=== PATIENT | female | born 1980 | race Caucasian/White ===

== ENCOUNTER 2017-02-27 07:50 | Emergency (ER) | payer MEDICARE ==
[~2017-02-27] VITALS: Ht 167.6 cm; Wt 74.8 kg
[2017-02-27 07:55] VITALS: BP 117/75
--- NOTE | 2017-02-27 08:17 | ED.ADGEN ---
Adult General Chief Complaint Chief Complaint: FOREIGN BODY VAGINA HPI HPI Patient is a 36 year old female who presents with retained tampon times several hours. Patient's currently on her menstrual period. Denies pain or cramping. Review of Systems Review of Systems Review symptoms as per history of present illness. Physical Exam Physical Exam Constitutional: Well developed, well nourished, no acute distress, non-toxic appearance. [] HENT: Normocephalic, atraumatic, bilateral external ears normal, oropharynx moist, no oral exudates, nose normal. [] Eyes: PERRLA, EOMI, conjunctiva normal, no discharge. [] Neck: Normal range of motion, no tenderness, supple, no stridor. [] Cardiovascular:Heart rate regular rhythm, no murmur [] Lungs & Thorax: Bilateral breath sounds clear to auscultation [] Abdomen: Bowel sounds normal, soft, no tenderness, no masses, no pulsatile masses. [] : Warm, dry, no erythema, no rash. [] Back: Retained tampon in the vaginal vault with dark menstrual blood. No additional foreign bodies upon recheck after removal. Extremities: No tenderness, no cyanosis, no clubbing, ROM intact, no edema. [] Neurologic: Alert and oriented X 3, normal motor function, normal sensory function, no focal deficits noted. [] Psychologic: Affect normal, judgement normal, mood normal. [] EKG EKG [] Radiology/Procedures Radiology/Procedures [] Course & Med Decision Making Course & Med Decision Making Pertinent Labs and Imaging studies reviewed. (See chart for details) [Intact tampon successfully removed. Patient assures this provider that the tampon was only retained for several hours and antibiotics are not currently indicated] Dragon Disclaimer Dragon Disclaimer This electronic medical record was generated, in whole or in part, using a voice recognition dictation system. ALISA DOS SANTOS DO Feb 27, 2017 08:17
== END 2017-02-27 08:30 | disposition home or self-care (01) ==
LOC: ER 07:50
DX: T19.2XXA Foreign body in vulva and vagina, initial encounter (principal); X58.XXXA Exposure to other specified factors, initial encounter; Y93.9 Activity, unspecified; Y92.89 Other specified places as the place of occurrence of the external cause; Y99.8 Other external cause status
CPT/HCPCS: 99284

== ENCOUNTER 2017-07-29 12:55 | Emergency (ER) | payer MEDICARE ==
[~2017-07-29] VITALS: Ht 167.6 cm; Wt 59.0 kg
[2017-07-29 13:03] VITALS: BP 117/65
[2017-07-29] MEDS ORDERED: ACET-704 PO (13:26)
[2017-07-29] MEDS ORDERED: AMOX500C PO (13:26)
--- NOTE | 2017-07-29 13:26 | PHYS DOC ---
Past Medical History Past Medical History: Bipolar, Other Additional Past Medical Histor: PTSD Past Surgical History: Cholecystectomy, Alcohol Use: None Drug Use: None Adult General Chief Complaint Chief Complaint: DENTAL PROBLEM HPI HPI Patient is a 36 year old female presents to the emergency department stating that she's been having right lower dental pain and discomfort for the last 2-3 days. She denies any fever, chills or any nausea or vomiting. Patient does have swelling noted on the right side of her lower jaw. States that she does not have a dentist to follow-up with. She denies any foul taste in the mouth. Review of Systems Review of Systems Constitutional: Denies fever or chills [] Eyes: Denies change in visual acuity, redness, or eye pain [] HENT: Denies nasal congestion or sore throat. C/O dental pain Respiratory: Denies cough or shortness of breath [] Cardiovascular: No additional information not addressed in HPI [] GI: Denies abdominal pain, nausea, vomiting, bloody stools or diarrhea [] : Denies dysuria or hematuria [] Musculoskeletal: Denies back pain or joint pain [] Integument: Denies rash or skin lesions [] Neurologic: Denies headache, focal weakness or sensory changes [] Endocrine: Denies polyuria or polydipsia [] All other systems were reviewed and found to be within normal limits, except as documented in this note. Allergies Allergies Allergies Coded Allergies Type Severity Reaction Last Updated Verified Sulfa (Sulfonamide Antibiotics) Allergy Intermediate N/V AND SWELLING 02/27/17 Yes morphine Allergy Intermediate HIVES, N/V 02/27/17 Yes Physical Exam Physical Exam Constitutional: Well developed, well nourished, no acute distress, non-toxic appearance. [] HENT: Normocephalic, atraumatic, bilateral external ears normal, oropharynx moist, no oral exudates, nose normal. Bilateral tympanic membranes appear to be normal. Patient appears to have multiple decayed teeth. Patient also has multiple missing teeth. Patient also has swelling noted to the right lower jawline. Patient was noted to have an abscess around the #27 tooth. No drainage or discharge noted from the area. Eyes: PERRLA, EOMI, conjunctiva normal, no discharge. [] Neck: Normal range of motion, no tenderness, supple, no stridor. [] Cardiovascular:Heart rate regular rhythm, no murmur [] Lungs & Thorax: Bilateral breath sounds clear to auscultation [] Skin: Warm, dry, no erythema, no rash. [] Extremities: No tenderness, no cyanosis, no clubbing, ROM intact, no edema. [] Neurologic: Alert and oriented X 3, normal motor function, normal sensory function, no focal deficits noted. [] Psychologic: Affect normal, judgement normal, mood normal. [] Current Patient Data Vital Signs Vital Signs Date Time Temp Pulse Resp B/P (MAP) Pulse Ox O2 Delivery O2 Flow Rate FiO2 07/29/17 13:03 97.5 98 18 99 Room Air 97.5 EKG EKG [] Radiology/Procedures Radiology/Procedures [] Course & Med Decision Making Course & Med Decision Making Pertinent Labs and Imaging studies reviewed. (See chart for details) Patient will be discharged home with a prescription for amoxicillin and Tylenol 3. She follow up with a dentist within the week. She'll be provided with a dentist list that she states she does not have a dentist. She was also recommended to use warm salt water mouth rinses 4 times a day continue to Amanda brush her teeth as normal. Instructed that Tylenol 3 will cause drowsiness do not take any be alert and oriented. Also recommended she drink plenty of fluids to prevent constipation. I've spoken with the patient and/or caregivers. I've explained the patient's condition, diagnosis and treatment plan based on information available to me at this time. I've answered the patient's and/or caregivers questions and addressed any concerns. The patient and/or caregivers have a good understanding the patient's diagnosis, condition and treatment plan as can be expected at this point. Vital signs have been stabilized. The patient's condition is stable for discharge from the emergency department. The patient will pursue further outpatient evaluation with her primary care provider or other designated consulting physician as outlined in the discharge instructions. Patient and/or caregivers are agreeable to this plan of care and follow-up instructions have been explained in detail. The patient and/or caregivers have received these instructions in written format and expressed understanding of these discharge instructions. The patient and her caregivers are aware that if any significant change in condition or worsening of symptoms should prompt him to immediately return to this of the closest emergency department. If an emergent department is not readily available I would encourage him to call 911. [] [place] Disclaimer Dragon Disclaimer This electronic medical record was generated, in whole or in part, using a voice recognition dictation system. Departure Departure Impression: Primary Impression: Dental abscess Disposition: HOME, SELF-CARE Condition: STABLE Referrals: NO PCP (PCP) Patient Instructions: Dental Abscess Additional Instructions: Activity as tolerated Medication as prescribed Tylenol #3 will cause drowsiness do not take if you need to be alert and oriented. This medication may also cause drowsiness drink plenty of fluids and high fiber diet Followup with dentist within the week] Return to emergency department as needed for signs and symptoms that become worse. Scripts Acetaminophen With Codeine (TYLENOL WITH CODEINE #3 TABLET) 1 Each Tablet 1 TAB PO PRN Q6HRS Y for PAIN, #15 TAB Prov: SATHISH TOSCANO APRN 07/29/17 Amoxicillin (AMOXICILLIN) 500 Mg Capsule 1 CAP PO QID, #40 CAP Prov: SATHISH TOSCANO APRN 07/29/17 SATHISH TOSCANO APRN Jul 29, 2017 13:26
== END 2017-07-29 13:39 | disposition home or self-care (01) ==
LOC: ER 12:55
DX: K04.7 Periapical abscess without sinus (principal); F43.10 Post-traumatic stress disorder, unspecified; F31.9 Bipolar disorder, unspecified; Z90.49 Acquired absence of other specified parts of digestive tract; Z88.2 Allergy status to sulfonamides; Z88.5 Allergy status to narcotic agent
CPT/HCPCS: 99283

== ENCOUNTER 2019-02-04 18:09 | Emergency (ER) | payer MEDICARE, SELFPAY ==
[~2019-02-04] VITALS: Ht 167.6 cm; Wt 77.1 kg
[~2019-02-04 18:09] MED LIST: ACET-704 PO; AMOX500C PO
[2019-02-04 18:40] LABS: BILIRUBIN,URINE NEGATIVE (NEG); CLARITY,URINE CLEAR; COLOR,URINE YELLOW; NITRITE,URINE NEGATIVE (NEG); PROTEIN,URINE 30 mg/dL (NEG-TRACE)
[2019-02-04 18:46] LABS: BARBITURATES NEG (NEG); BENZODIAZEPINES NEG (NEG); CANNABINOIDS NEG (NEG); COCAINE NEG (NEG); METHADONE NEG (NEG); OPIATES NEG (NEG); PHENCYCLIDINE NEG (NEG)
[2019-02-04 18:48] LABS: AMPHETAMINE/METHAMPHETAMINE POS (NEG)
[2019-02-04 18:49] LABS: BACTERIA,URINE MANY /HPF (0-FEW); SQUAMOUS EPITHELIAL CELL,UR MOD /LPF
--- NOTE | 2019-02-04 19:15 | PHYS DOC ---
Past Medical History Past Medical History: Bipolar, Schizophrenia Additional Past Medical Histor: ptsd Past Surgical History: Cholecystectomy, Alcohol Use: None Drug Use: None Social History Narrative: STATES SHE USED METH 01/10/19 Adult General Chief Complaint Chief Complaint: ALTERED MENTAL STATUS [facility] Patient is a 38 near year old female with h/o PTSD, schizophrenia, and polysubstance abuse who presents with request for mental health screening evaluation. Patient states she's been off her psychiatric medications for years like the restarted. She reports hearing voices in her head. Denies command hallucinations, has suicidal ideation and homicidal ideation. Reports recent methamphetamine abuse. No other acute symptoms or complaints. Review of Systems Review of Systems All other systems were reviewed and found to be within normal limits. ROS as per [facility] Allergies Allergies Allergies Coded Allergies Type Severity Reaction Last Updated Verified Sulfa (Sulfonamide Antibiotics) Allergy Intermediate N/V AND SWELLING 02/27/17 Yes morphine Allergy Intermediate HIVES, N/V 02/27/17 Yes Physical Exam Physical Exam Constitutional: Well developed, well nourished, no acute distress, non-toxic appearance. [] HENT: Normocephalic, atraumatic, bilateral external ears normal, oropharynx moist, no oral exudates, nose normal. [] Eyes: PERRLA, EOMI, conjunctiva normal, no discharge. [] Neck: Normal range of motion, no tenderness, supple, no stridor. [] Cardiovascular:Heart rate regular rhythm, no murmur [] Lungs & Thorax: Bilateral breath sounds clear to auscultation [] Abdomen: Bowel sounds normal, soft, no tenderness. [] Skin: Warm, dry. [] Back: No tenderness. [] Extremities: No tenderness, no edema. [] Neurologic: Alert and oriented X 3, normal motor function, normal sensory function, no focal deficits noted. [] Psychologic: Affect normal, mood normal. No HI/SI. [] Current Patient Data Vital Signs Vital Signs Date Time Temp Pulse Resp B/P (MAP) Pulse Ox O2 Delivery O2 Flow Rate FiO2 02/04/19 18:22 99.1 142/70 (94) 100 Room Air 99.1 Lab Values Laboratory Tests Test 02/04/19 18:14 02/04/19 18:24 Urine Collection Type Unknown Urine Color Yellow Urine Clarity Clear Urine pH 7.0 Urine Specific [place] >=1.030 Urine Protein 30 mg/dL (NEG-TRACE) Urine Glucose (UA) Negative mg/dL (NEG) Urine Ketones (Stick) Negative mg/dL (NEG) Urine Blood Large (NEG) Urine Nitrite Negative (NEG) Urine Bilirubin Negative (NEG) Urine Urobilinogen Dipstick 1.0 mg/dL (0.2 mg/dL) Urine Leukocyte Esterase Small (NEG) Urine RBC 1-2 /HPF (0-2) Urine WBC 5-10 /HPF (0-4) Urine Squamous Epithelial Cells Mod /LPF Urine Bacteria Many /HPF (0-FEW) Urine Mucus Marked /LPF Urine Opiates Screen Neg (NEG) Urine Methadone Screen Neg (NEG) Urine Barbiturates Neg (NEG) Urine Phencyclidine Screen Neg (NEG) Urine Amphetamine/Methamphetamine Pos (NEG) Urine Benzodiazepines Screen Neg (NEG) Urine Cocaine Screen Neg (NEG) Urine Cannabinoids Screen Neg (NEG) Urine Ethyl Alcohol Neg (NEG) POC Urine HCG, Qualitative Hcg negative (Negative) EKG EKG [] Radiology/Procedures Radiology/Procedures [] Course & Med Decision Making Course & Med Decision Making Pertinent Labs and Imaging studies reviewed. 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 Recommendations are outpatient therapy. Patient also voices concern about possible STI exposure. Denies symptoms in ED. Zithromax treatment given. ] Dragon Disclaimer Dragon Disclaimer This electronic medical record was generated, in whole or in part, using a voice recognition dictation system. Departure Departure Impression: Primary Impression: Chronic psychosis Additional Impression: Methamphetamine abuse Disposition: 01 HOME, SELF-CARE Condition: GOOD Referrals: NO PCP (PCP) Patient Instructions: Substance Abuse-Brief Additional Instructions: Please follow-up with outpatient resources provided. Problem Qualifiers ALISA DOS SANTOS DO February 04, 2019 19:15
[2019-02-04] MEDS ORDERED: AZITHROMYCIN 250 MG TABLET. PO ONE (21:00)
[2019-02-04 21:08] VITALS: BP 140/68
== END 2019-02-04 21:10 | disposition home or self-care (01) ==
LOC: ER 18:09
DX: F28 Other psychotic disorder not due to a substance or known physiological condition (principal); F15.10 Other stimulant abuse, uncomplicated; F31.9 Bipolar disorder, unspecified; Z98.890 Other specified postprocedural states; Z90.49 Acquired absence of other specified parts of digestive tract; Z88.2 Allergy status to sulfonamides; Z88.5 Allergy status to narcotic agent
CPT/HCPCS: 80307; 81001; 81025; 87086; 99284; Q0144; 87186

== ENCOUNTER 2019-03-19 20:09 | Emergency (ER) | payer SELFPAY ==
[~2019-03-19] VITALS: Ht 165.1 cm; Wt 77.1 kg
[2019-03-19 20:19] VITALS: BP 122/82
[2019-03-19 20:41] LABS: BILIRUBIN,URINE NEGATIVE (NEG); CLARITY,URINE CLOUDY; COLOR,URINE YELLOW; NITRITE,URINE NEGATIVE (NEG); PROTEIN,URINE 30 mg/dL (NEG-TRACE)
[2019-03-19 20:45] LABS: BACTERIA,URINE MANY /HPF (0-FEW)
[2019-03-19 20:46] LABS: RBC,URINE 0 /HPF (0-2)
[2019-03-19 20:54] LABS: BASO # 0.1 x10^3/uL (0.0-0.2); BASO % 1 % (0-3); EOS % 1 % (0-3); HEMATOCRIT 31.6 % (36.0-47.0); HEMOGLOBIN 10.3 g/dL (12.0-15.5); LYMPH # 3.1 x10^3/uL (1.0-4.8); LYMPH % 40 % (24-48); MEAN CORPUSCULAR HEMOGLOBIN 26 pg (25-35); MEAN CORPUSCULAR HGB CONC 33 g/dL (31-37); MEAN CORPUSCULAR VOLUME 80 fL (79-100); MONO # 0.5 x10^3/uL (0.0-1.1); MONO % 7 % (0-9); NEUT % 52 % (31-73); PLATELET COUNT 311 x10^3/uL (140-400); RED BLOOD COUNT 3.95 x10^6/uL (3.50-5.40); RED CELL DISTRIBUTION WIDTH 15.4 % (11.5-14.5); WHITE BLOOD COUNT 7.7 x10^3/uL (4.0-11.0)
[2019-03-19 21:05] LABS: CALCIUM 8.6 mg/dL (8.5-10.1); CREATININE 0.8 mg/dL (0.6-1.0); GFR 79.9; POTASSIUM 3.6 mmol/L (3.5-5.1)
[2019-03-19 21:10] LABS: ALBUMIN 3.6 g/dL (3.4-5.0); ALBUMIN/GLOBULIN RATIO 0.9 (1.0-1.7); TOTAL BILIRUBIN 0.8 mg/dL (0.2-1.0); TOTAL PROTEIN 7.5 g/dL (6.4-8.2)
[2019-03-19 21:14] LABS: BARBITURATES NEG (NEG); BENZODIAZEPINES NEG (NEG); CANNABINOIDS POS (NEG); COCAINE NEG (NEG); METHADONE NEG (NEG); OPIATES NEG (NEG); PHENCYCLIDINE NEG (NEG)
[2019-03-19 21:18] LABS: AMPHETAMINE/METHAMPHETAMINE POS (NEG)
--- NOTE | 2019-03-19 22:03 | RAD ---
Supine abdomen. HISTORY: "Feels something moving in her abdomen and " Supine view was taken of the abdomen. Patient's had a cholecystectomy. There is moderate stool in the colon. There is no small bowel obstruction. There are no abnormal calcifications. IMPRESSION: 1. No bowel obstruction or acute finding noted in the abdomen. 2. Moderate stool in the colon. Electronically signed by: Jaswant Moreno MD (03/19/2019 10:00 PM) [facility]
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
[2019-03-19] MEDS ORDERED: CEPH-264 PO (22:15)
--- NOTE | 2019-03-20 06:19 | EKG ---
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
== END 2019-03-19 22:35 | disposition home or self-care (01) ==
LOC: ER 20:09
DX: T74.21XA Adult sexual abuse, confirmed, initial encounter (principal); R07.89 Other chest pain; K59.00 Constipation, unspecified; N39.0 Urinary tract infection, site not specified; F15.20 Other stimulant dependence, uncomplicated; F31.9 Bipolar disorder, unspecified; Z90.49 Acquired absence of other specified parts of digestive tract; Z98.890 Other specified postprocedural states; Z88.5 Allergy status to narcotic agent; Z88.2 Allergy status to sulfonamides
CPT/HCPCS: 36415; 74018; 80053; 80307; 81001; 81025; 84484; 85025; 87086; 93005; 99285-25